=== PATIENT | male | born 1960 | race Caucasian/White ===

== ENCOUNTER 2017-06-30 09:40 | Emergency (ER) | payer BC ==
[~2017-06-30] VITALS: Ht 180.3 cm; Wt 100.0 kg
[~2017-06-30 09:40] MED LIST: HYDR-3533 PO
[2017-06-30 09:42] VITALS: BP 145/80; PULSE 86; RESP 20; TEMP 99.1; O2SAT 100
[2017-06-30 10:06] LABS: AUTOMATED NEUTROPHIL # 4.7 TH/MM3 (1.8-7.7); BASOPHIL % 0.2 % (0.0-2.0); EOSINOPHIL # 0.1 TH/MM3 (0-0.4); EOSINOPHIL % 1.3 % (0.0-4.0); HEMATOCRIT 34.6 % (39.0-51.0); HEMOGLOBIN 11.1 GM/DL (13.0-17.0); LYMPH % 20.2 % (9.0-44.0); LYMPHOCYTE # 1.4 TH/MM3 (1.0-4.8); MEAN CELL VOLUME 73.2 FL (80.0-100.0); MEAN CORPUSCULAR HEMOGLOBIN 23.5 PG (27.0-34.0); MEAN CORPUSCULAR HGB CONC 32.1 % (32.0-36.0); MEAN PLATELET VOLUME 7.3 FL (7.0-11.0); MONO % 10.3 % (0.0-8.0); MONOCYTE # 0.7 TH/MM3 (0-0.9); PLATELET COUNT 206 TH/MM3 (150-450); RED BLOOD COUNT 4.72 MIL/MM3 (4.50-5.90); RED CELL DISTRIBUTION WIDTH 16.4 % (11.6-17.2); WHITE BLOOD COUNT 6.9 TH/MM3 (4.0-11.0)
[2017-06-30 10:16] LABS: BILIRUBIN, URINE NEG (NEG); BLOOD, URINE NEG (NEG); GLUCOSE,URINE NEG (NEG); KETONE, URINE NEG (NEG); MUCUS URINE MOD /lpf (OCC); NITRITE,URINE NEG (NEG); URINE COLOR YELLOW (YELLW/STRAW); URINE LEUKOCYTE ESTERASE NEG (NEG)
[2017-06-30 10:26] LABS: ALBUMIN 4.1 GM/DL (3.4-5.0); ALT (GPT) 14 U/L (12-78); AST (GOT) 15 U/L (15-37); BICARBONATE 25.5 MEQ/L (21.0-32.0); BLOOD UREA NITROGEN 15 MG/DL (7-18); CALCIUM 8.8 MG/DL (8.5-10.1); CHLORIDE 106 MEQ/L (98-107); CREATININE 1.28 MG/DL (0.60-1.30); GLOMERULAR FILTRATION RATE 59 ML/MIN (>89); GLUCOSE,RANDOM 101 MG/DL (74-106); SODIUM (NA) 140 MEQ/L (136-145)
[2017-06-30 10:29] LABS: ALKALINE PHOSPHATASE 58 U/L (45-117); TOTAL BILIRUBIN ADULT 0.5 MG/DL (0.2-1.0); TOTAL PROTEIN 7.2 GM/DL (6.4-8.2)
[2017-06-30 11:18] VITALS: BP 136/74; PULSE 72; RESP 12; O2SAT 100
[2017-06-30] MEDS ORDERED: SODIUM CHLORIDE 0.9% FLUSH 10 ML FLUSH IV FLUSH PRN (11:30)
[2017-06-30] MEDS ORDERED: SODIUM CHLOR 0.9% 1000 ML INJ 1,000 ML IV SCH (11:31)
--- NOTE | 2017-06-30 11:37 | PD ---
HPI Chief Complaint: Abdominal Pain Time Seen by Provider: 11:24 Travel History International Travel<30 days: No Contact w/Intl Traveler<30days: No Traveled to known affect area: No History of Present Illness HPI 56-year-old male presents to the ED for evaluation of 10/10 stabbing left lower quadrant abdominal pain. Sudden onset around 2 AM, woke him from sleep. Pain does not radiate into the groin. Patient endorses temp of 101 by oral thermometer. He denies nausea, vomiting, changes in bowel habits, melena, hematochezia. Endorses chronic loose stools secondary to sphincterotomy. He denies dysuria, hematuria, history of kidney stones. Last colonoscopy approximately 3 years ago. He endorses history of appendectomy and cholecystectomy. No treatment attempted at home. PFSH Past Medical History Cancer: No Cardiovascular Problems: No Diminished Hearing: No Endocrine: No Genitourinary: No Immune Disorder: No Musculoskeletal: No Neurologic: No Psychiatric: No Reproductive: No Respiratory: No Immunizations Current: Yes Past Surgical History Appendectomy: Yes Cholecystectomy: Yes Other Surgery: Yes (BACK SURGERY AND LEFT POINTER FINGER SURGERY) Social History Alcohol Use: No Tobacco Use: No Substance Use: No Allergies-Medications (Allergen,Severity, Reaction): Coded Allergies: No Known Allergies (Verified Allergy, Unknown, 06/30/17) Reported Meds & Prescriptions Reported Meds & Active Scripts Active Texline (Hydrocodone-Acetaminophen) 5 Mg-325 Mg Tab 1 Tab PO Q6H PRN Metronidazole 500 Mg Tab 500 Mg PO TID 7 Days Cipro (Ciprofloxacin HCl) 500 Mg Tab 500 Mg PO BID 7 Days Review of Systems Except as stated in HPI: all other systems reviewed are Neg Physical Exam Narrative GENERAL: Well-nourished, well-developed nontoxic appearing white male in no acute distress.. SKIN: Focused skin assessment warm/dry. HEAD: Normocephalic. EYES: No scleral icterus. No injection or drainage. NECK: Supple, trachea midline. No JVD or lymphadenopathy. CARDIOVASCULAR: Regular rate and rhythm without murmurs, gallops, or rubs. RESPIRATORY: Breath sounds equal bilaterally. No accessory muscle use. GASTROINTESTINAL: Abdomen soft, nondistended. Tender to palpation in the left flank and left lower quadrant. Active bowel sounds. MUSCULOSKELETAL: No cyanosis, or edema. BACK: Nontender without obvious deformity. No CVA tenderness. Data Data Last Documented VS Vital Signs Date Time Temp Pulse Resp B/P (MAP) Pulse Ox O2 Delivery O2 Flow Rate FiO2 06/30/17 13:41 77 16 124/91 (102) 99 Room Air 06/30/17 09:42 99.1 Orders Orders Complete Blood Count With Diff (06/30/17 09:48) Comprehensive Metabolic Panel (06/30/17 09:48) Urinalysis - C+S If Indicated (06/30/17 09:48) Lipase (06/30/17 09:48) Lactic Acid (06/30/17 09:51) Iv Access Insert/Monitor (06/30/17 11:24) Ecg Monitoring (06/30/17 11:24) Oximetry (06/30/17 11:24) Sodium Chloride 0.9% Flush (Ns Flush) (06/30/17 11:30) Ct Abd/Pel W Iv Contrast(Rout) (06/30/17 11:31) Morphine Inj (Morphine Inj) (06/30/17 11:45) Ondansetron Inj (Zofran Inj) (06/30/17 11:45) Sodium Chlor 0.9% 1000 Ml Inj (Ns 1000 M (06/30/17 11:31) Oral Contrast - Adult (06/30/17 11:42) Diatrizoate Liq ( Gastroview Liq) (06/30/17 12:00) Lactic Acid (06/30/17 12:55) Iohexol 350 Inj (Omnipaque 350 Inj) (06/30/17 13:30) Ciprofloxacin (Cipro) (06/30/17 14:15) Metronidazole (Flagyl) (06/30/17 14:15) Acetamin-Hydrocod 325-5 Mg (Texline 5-325 (06/30/17 14:30) Ed Discharge Order (06/30/17 14:47) Labs Laboratory Tests Test 06/30/17 09:54 06/30/17 10:05 06/30/17 13:45 White Blood Count 6.9 TH/MM3 Red Blood Count 4.72 MIL/MM3 Hemoglobin 11.1 GM/DL Hematocrit 34.6 % Mean Corpuscular Volume 73.2 FL Mean Corpuscular Hemoglobin 23.5 PG Mean Corpuscular Hemoglobin Concent 32.1 % Red Cell Distribution Width 16.4 % Platelet Count 206 TH/MM3 Mean Platelet Volume 7.3 FL Neutrophils (%) (Auto) 68.0 % Lymphocytes (%) (Auto) 20.2 % Monocytes (%) (Auto) 10.3 % Eosinophils (%) (Auto) 1.3 % Basophils (%) (Auto) 0.2 % Neutrophils # (Auto) 4.7 TH/MM3 Lymphocytes # (Auto) 1.4 TH/MM3 Monocytes # (Auto) 0.7 TH/MM3 Eosinophils # (Auto) 0.1 TH/MM3 Basophils # (Auto) 0.0 TH/MM3 CBC Comment DIFF FINAL Differential Comment Blood Urea Nitrogen 15 MG/DL Creatinine 1.28 MG/DL Random Glucose 101 MG/DL Total Protein 7.2 GM/DL Albumin 4.1 GM/DL Calcium Level 8.8 MG/DL Alkaline Phosphatase 58 U/L Aspartate Amino Transf (AST/SGOT) 15 U/L Alanine Aminotransferase (ALT/SGPT) 14 U/L Total Bilirubin 0.5 MG/DL Sodium Level 140 MEQ/L Potassium Level 3.9 MEQ/L Chloride Level 106 MEQ/L Carbon Dioxide Level 25.5 MEQ/L Anion Gap 9 MEQ/L Estimat Glomerular Filtration Rate 59 ML/MIN Lactic Acid Level 2.5 mmol/L 0.8 mmol/L Lipase 121 U/L Urine Color YELLOW Urine Turbidity CLEAR Urine pH 7.0 Urine Specific [place] 1.024 Urine Protein TRACE mg/dL Urine Glucose (UA) NEG mg/dL Urine Ketones NEG mg/dL Urine Occult Blood NEG Urine Nitrite NEG Urine Bilirubin NEG Urine Urobilinogen LESS THAN 2.0 MG/DL Urine Leukocyte Esterase NEG Urine RBC 1 /hpf Urine WBC 1 /hpf Urine Mucus MOD /lpf Microscopic Urinalysis Comment CULT NOT INDICATED MDM Medical Decision Making Medical Screen Exam Complete: Yes Emergency Medical Condition: Yes Differential Diagnosis Diverticulitis versus colitis versus bowel obstruction versus inguinal hernia versus ureterolithiasis versus other Narrative Course 56-year-old male presents to the ED for evaluation of 10/10 stabbing left lower quadrant abdominal pain. Sudden onset around 2 AM, woke him from sleep. Endorses temp of 101 by oral thermometer. No N/D, changes in bowel habits, dysuria, hematuria. Endorses chronic loose stools secondary to sphincterotomy. Last colonoscopy approximately 3 years ago. He endorses history of appendectomy and cholecystectomy. Patient is afebrile on presentation. Physical exam reveals a nontoxic-appearing white male in no acute distress. He does have tenderness to palpation in the left lower quadrant and flank. IV was established. Patient was administered 4 mg morphine, 4 mg Zofran and 1 L normal saline IV. CBC & BMP Diagram 06/30/17 09:54 Total Protein 7.2, Albumin 4.1, Calcium Level 8.8, Alkaline Phosphatase 58, Aspartate Amino Transf (AST/SGOT) 15, Alanine Aminotransferase (ALT/SGPT) 14, Total Bilirubin 0.5 Lactic acid 2.5. Recheck lactic acid 0.8. UA: No culture indicated. CT abdomen and pelvis: Acute diverticulitis of the sigmoid colon. Prominent prostate per radiology read. I discussed the results of the workup with the patient. He is prescribed Cipro , Flagyl and Texline. First doses administered in the ED. He is instructed to rest, hydrate, modify diet according to guidelines provided at discharge, follow with his primary care provider, return for worsening symptoms. He indicated understanding of the instructions and is agreeable a care plan. The patient is stable and discharged home. Diagnosis Primary Impression: Diverticulitis large intestine Qualified Codes: K57.32 - Diverticulitis of large intestine without perforation or abscess without bleeding Referrals: Tele [employer] Line Repairer Primary Care Physician Patient Instructions: Diverticulitis (ED), Diverticulitis Diet (ED), General Instructions Additional Instructions: Rest, hydrate. Begin antibiotics today and take until every pill is gone. Take pain medications as prescribed. Do not drive while taking pain medications. Follow dietary instructions provided with your discharge paperwork. Follow up with your energy systems engineer this week. Return to the ED for worsening symptoms or any urgent/ emergent medical condition. Med/Other Pt SpecificInfo: Prescription(s) given Scripts Hydrocodone-Acetaminophen (Texline) 5 Mg-325 Mg Tab 1 TAB PO Q6H Y for PAIN, #12 TAB 0 Refills Prov: Luzmaria Strickland MD 06/30/17 Metronidazole (Metronidazole) 500 Mg Tab 500 MG PO TID for Infection for 7 Days, TAB 0 Refills Prov: Luzmaria Strickland MD 06/30/17 Ciprofloxacin (Cipro) 500 Mg Tab 500 MG PO BID for Infection for 7 Days, #14 TAB 0 Refills Prov: Luzmaria Strickland MD 06/30/17 Disposition: 01 DISCHARGE HOME Condition: Stable Sayda Patterson Jun 30, 2017 11:37
[2017-06-30] MEDS ORDERED: MORPHINE SULFATE 4 MG/ML INJ IV PUSH ONE (11:45)
[2017-06-30] MEDS ORDERED: ONDANSETRON HCL 4 MG/2 ML VIAL IVP ONE (11:45)
[2017-06-30 11:55] VITALS: RESP 14; O2SAT 99
[2017-06-30] MEDS ORDERED: DIATRIZOATE MEGLUM/DIATRIZOATE SOD 9 ML CUP ONE (12:00)
--- NOTE | 2017-06-30 12:01 | PD ---
Physical Exam Date Seen by Provider: Jun 30, 2017 Narrative This patient presents for the evaluation of acute left lower quadrant abdominal pain. This started at about 2 in the morning. Data Data Last Documented VS Vital Signs Date Time Temp Pulse Resp B/P (MAP) Pulse Ox O2 Delivery O2 Flow Rate FiO2 06/30/17 11:55 14 (94) 99 Room Air 06/30/17 11:18 72 06/30/17 09:42 99.1 Orders Orders Complete Blood Count With Diff (06/30/17 09:48) Comprehensive Metabolic Panel (06/30/17 09:48) Urinalysis - C+S If Indicated (06/30/17 09:48) Lipase (06/30/17 09:48) Lactic Acid (06/30/17 09:51) Iv Access Insert/Monitor (06/30/17 11:24) Ecg Monitoring (06/30/17 11:24) Oximetry (06/30/17 11:24) Sodium Chloride 0.9% Flush (Ns Flush) (06/30/17 11:30) Ct Abd/Pel W Iv Contrast(Rout) (06/30/17 11:31) Morphine Inj (Morphine Inj) (06/30/17 11:45) Ondansetron Inj (Zofran Inj) (06/30/17 11:45) Sodium Chlor 0.9% 1000 Ml Inj (Ns 1000 M (06/30/17 11:31) Oral Contrast - Adult (06/30/17 11:42) Labs Laboratory Tests Test 06/30/17 09:54 06/30/17 10:05 White Blood Count 6.9 TH/MM3 Red Blood Count 4.72 MIL/MM3 Hemoglobin 11.1 GM/DL Hematocrit 34.6 % Mean Corpuscular Volume 73.2 FL Mean Corpuscular Hemoglobin 23.5 PG Mean Corpuscular Hemoglobin Concent 32.1 % Red Cell Distribution Width 16.4 % Platelet Count 206 TH/MM3 Mean Platelet Volume 7.3 FL Neutrophils (%) (Auto) 68.0 % Lymphocytes (%) (Auto) 20.2 % Monocytes (%) (Auto) 10.3 % Eosinophils (%) (Auto) 1.3 % Basophils (%) (Auto) 0.2 % Neutrophils # (Auto) 4.7 TH/MM3 Lymphocytes # (Auto) 1.4 TH/MM3 Monocytes # (Auto) 0.7 TH/MM3 Eosinophils # (Auto) 0.1 TH/MM3 Basophils # (Auto) 0.0 TH/MM3 CBC Comment DIFF FINAL Differential Comment Blood Urea Nitrogen 15 MG/DL Creatinine 1.28 MG/DL Random Glucose 101 MG/DL Total Protein 7.2 GM/DL Albumin 4.1 GM/DL Calcium Level 8.8 MG/DL Alkaline Phosphatase 58 U/L Aspartate Amino Transf (AST/SGOT) 15 U/L Alanine Aminotransferase (ALT/SGPT) 14 U/L Total Bilirubin 0.5 MG/DL Sodium Level 140 MEQ/L Potassium Level 3.9 MEQ/L Chloride Level 106 MEQ/L Carbon Dioxide Level 25.5 MEQ/L Anion Gap 9 MEQ/L Estimat Glomerular Filtration Rate 59 ML/MIN Lactic Acid Level 2.5 mmol/L Lipase 121 U/L Urine Color YELLOW Urine Turbidity CLEAR Urine pH 7.0 Urine Specific [place] 1.024 Urine Protein TRACE mg/dL Urine Glucose (UA) NEG mg/dL Urine Ketones NEG mg/dL Urine Occult Blood NEG Urine Nitrite NEG Urine Bilirubin NEG Urine Urobilinogen LESS THAN 2.0 MG/DL Urine Leukocyte Esterase NEG Urine RBC 1 /hpf Urine WBC 1 /hpf Urine Mucus MOD /lpf Microscopic Urinalysis Comment CULT NOT INDICATED MDM Supervised Visit with SUE: Yes Narrative Course I, Dr. Strickland, have reviewed the advance practice practitioner's documentation and am in agreement, met with the patient face to face, made the diagnosis, and the medical decision making was done by me. *My assessment and Findings: Patient is awake and alert and in no acute distress. He has left lower quadrant abdominal tenderness. Please see Sayda Patterson PA-C's note for results of laboratory and radiographic evaluation, ED course, final diagnosis and disposition Scripts No Active Prescriptions or Reported Meds Luzmaria Strickland MD Jun 30, 2017 12:01
[2017-06-30] MEDS ORDERED: IOHEXOL 350 MG/ML 10 ML VIAL (for RAD DIAG) IVCONTRAST ONE (13:30)
[2017-06-30 13:41] VITALS: BP 124/91; PULSE 77; RESP 16; O2SAT 99
--- NOTE | 2017-06-30 13:48 | RADRPT ---
EXAM DATE/TIME: 06/30/2017 13:26 [facility] COMPARISON: CT ABDOMEN & PELVIS W CONTRAST, October 24, 2015, 23:12. INDICATIONS : Left lower quadrant pain. IV CONTRAST: 96 cc Omnipaque 350 (iohexol) IV ORAL CONTRAST: Prescribed oral contrast ingested. RADIATION DOSE: 9.76 CTDIvol (mGy) MEDICAL HISTORY : None SURGICAL HISTORY : Hemorrhoidectomy. Appendectomy.Cholecystectomy.Prolapsed bowel. ENCOUNTER: Initial ACUITY: 1 day PAIN SCALE: 6/10 LOCATION: Left lower quadrant TECHNIQUE: Volumetric scanning of the abdomen and pelvis was performed. Using automated exposure control and ad justment of the mA and/or kV according to patient size, radiation dose was kept as low as reasonably achievable to obtain optimal diagnostic quality images. DICOM format image data is available electro nically for review and comparison. FINDINGS: Patient is status post appendectomy and cholecystectomy. No pleural or pericardial effusions are seen . There is a small cyst in the left hepatic lobe lateral segment measuring 1.9 cm. Kidneys, spleen, p ancreas, adrenals, stomach are unremarkable. Urinary bladder unremarkable. Prostate measures 6.5 x 1. 8 cm in transverse and AP dimension. There is abnormal inflammatory stranding in the pericolonic fat at the sigmoid/descending colonic junction where an inflamed diverticulum is noted with mild bowel wa ll thickening. This is characteristic of acute diverticulitis. There is no obstruction, free air or a bscess. Small fat-containing right inguinal hernia. Lung bases are clear. Osseous structures are inta ct. CONCLUSION: Acute diverticulitis of the sigmoid colon. Prominent prostate. Nii James MD on June 30, 2017 at 13:45 Board Certified Radiologist. This report was verified electronically.
[2017-06-30] MEDS ORDERED: METR1TAB76 PO (13:58)
[2017-06-30] MEDS ORDERED: NORC5TAB PO (13:58)
[2017-06-30] MEDS ORDERED: CIPR-9 PO (13:58)
[2017-06-30] MEDS ORDERED: metroNIDAZOLE 500 MG TAB PO ONE (14:15)
[2017-06-30] MEDS ORDERED: CIPROFLOXACIN 500 MG TAB PO ONE (14:15)
[2017-06-30] MEDS ORDERED: ACETAMINOPHEN/HYDROcodone 325 MG/5 MG TAB PO ONE (14:30)
== END 2017-06-30 15:11 | disposition home or self-care (01) ==
LOC: NEPE 09:40
DX: K57.32 Diverticulitis of large intestine without perforation or abscess without bleeding (principal)
CPT/HCPCS: 74177; 80053; 81001; 83605; 83690; 85025; 96361; 96374; 96375; 99284; J2270; J2405; J7030; Q9963; Q9967